=== PATIENT | female | born 1980 | race Caucasian/White ===

== ENCOUNTER 2019-03-06 16:08 | Emergency (ER) | payer OTHER ==
[~2019-03-06] VITALS: Wt 117.9 kg
--- NOTE | ~2019-03-06 | EKG ---
[place], [place] ELECTROCARDIOGRAM REPORT NAME: NITESH NOVAK UNIT #: [id number] ROOM: DOCTOR: EPIPHANY DRAFT REPORT BIRTHDATE: [birth year] [facility] Test Date: 2019-03-06 Test Time: 16:44:54 Pat Name: NITESH NOVAK Department: ER Room: Gender: F Tile Finisher: aDvis Baires : 1980 Requested By: CHIOMA BENITES Order Number: [id number] Reading MD: Patricia Jose Measurements Intervals [place] Rate: 98 P: 35 [place]: 154 QRS: -45 QRSD: 91 T: 17 QT: 346 QTc: 442 Interpretive Statements Sinus rhythm Inferior infarct, old Anterolateral Q wave, probably normal for age Electronically Signed On 03-08-2019 12:49:10 PDT by Patricia Joes CM:EKGRPT:ELECTROCARDIOGRAM REPORT [id number] CHIOMA MONTOYA DRAFT REPORT CHIOMA BENITES MD
[~2019-03-06 16:08] MED LIST: ATENOLOL25 MG PO; BENTYL10 MG PO; CIPROFLOXACIN500 MG PO; FE-TABS325 MG PO; LEVOTHYROXINE0.05 M1 PO; MOTRIN800 MG PO; NKHM; PERCOCET 325 MG1 TA2 PO; POLYTRIM 1000010 ML OPH; PRENATAL1 TA1 PO; PROTONIX20 MG PO; RA VITAMIN D3; TRAMADOL HCL50 MG PO; ULTRAM50 MG PO; ZITHROMAX TRI-500 MG PO; ZOFRAN4 MG PO; Zofran4 MG PO
[2019-03-06 16:43] LABS: BASO % 0.5 % (0.0-1.0); EOS # 0.1 10*3/uL (0.0-0.4); EOS % 1.4 % (1.0-4.0); HEMATOCRIT 38.2 % (37.0-47.0); HEMOGLOBIN 12.6 g/dl (12.0-16.0); LYMPH # 0.9 10*3/uL (1.3-4.4); LYMPH % 21.9 % (27.0-41.0); MEAN CELL VOLUME 87.4 fl (81.0-99.0); MEAN CORPUSCULAR HGB 28.8 pg (27.0-31.0); MEAN PLATELET VOLUME 10.7 fl (9.6-12.3); MONO # 0.2 10*3/uL (0.1-1.0); MONO % 5.2 % (3.0-9.0); NEUT % 70.5 % (47.0-73.0); PLATELET COUNT AUTOMATED 139 10*3/uL (130-400); RED BLOOD COUNT 4.37 10*6/uL (4.10-5.10); RED CELL DISTRI WIDTH 13.2 % (0-14.5); WHITE BLOOD COUNT 4.2 10*3/uL (4.8-10.8)
[2019-03-06 16:58] LABS: ACT PARTIAL THROMBO TIME 27.7 SECONDS (20.0-32.1)
[2019-03-06 17:02] LABS: ALBUMIN 3.7 gm/dl (3.1-4.5); ALKALINE PHOSPHATASE 65 U/L (45-117); BUN 8 mg/dl (7-24); CHLORIDE 108 mmol/L (98-107); CREATININE 0.83 mg/dL (0.55-1.02); SGOT/AST 20 IU/L (3-35); SGPT/ALT 13 U/L (12-78); SODIUM 138 mmol/L (136-145); TOTAL PROTEIN 7.8 gm/dL (6.4-8.2)
[2019-03-06 17:05] LABS: TROPONIN I < 0.015 ng/ml (<0.045)
[2019-03-06 17:22] LABS: BILIRUBIN NEGATIVE (NEGATIVE); BLOOD TRACE-INTACT (NEGATIVE); CLARITY CLEAR (CLEAR); COLOR YELLOW (YELLOW); GLUCOSE NEGATIVE (NEGATIVE); KETONE NEGATIVE (NEGATIVE); LEUKO ESTERASE TRACE (NEGATIVE); NITRITE NEGATIVE (NEGATIVE); PH 5.5 (5.0-9.0); SPECIFIC GRAVITY 1.025 (1.005-1.030); UROBILINOGEN 0.2 E.U./dl (0.2-1.0)
[2019-03-06 17:28] LABS: BACTERIA 2+; EPITHELIAL CELLS 16-20; RBC 0-2 rbc/hpf (0-2)
[2019-03-06] MEDS ORDERED: GOOD NEIGHBOR M25 M1 PO (18:04)
== END 2019-03-06 19:44 | disposition home or self-care (01) ==
LOC: ED 16:08
PROVIDERS: Emergency Medicine
DX: H81.10 Benign paroxysmal vertigo, unspecified ear (principal); K21.9 Gastro-esophageal reflux disease without esophagitis; Z79.899 Other long term (current) drug therapy

== ENCOUNTER → 2020-08-11 | Outpatient (CLI) | payer OTHER ==
[~2020-08-11] MED LIST changes: +AMOXICILLIN500 M3 PO; +GOOD NEIGHBOR M25 M1 PO
== END | disposition home or self-care (01) ==
LOC: US 15:21
PROVIDERS: ATTEND Nurse Practitioner Women's Health
DX: N93.9 Abnormal uterine and vaginal bleeding, unspecified (principal)

== ENCOUNTER 2020-08-18 18:09 | Emergency (ER) | payer OTHER ==
[~2020-08-18] VITALS: Wt 117.9 kg
[~2020-08-18 18:09] MED LIST changes: -AMOXICILLIN500 M3 PO
[2020-08-18] MEDS ORDERED: AMOXICILLIN500 M3 PO (19:02)
== END 2020-08-18 19:46 | disposition home or self-care (01) ==
LOC: ED 18:09
DX: U07.1 COVID-19 (principal); J35.8 Other chronic diseases of tonsils and adenoids

== ENCOUNTER → 2020-12-22 | Outpatient (CLI) | payer OTHER ==
[~2020-12-22] MED LIST changes: +AMOXICILLIN500 M3 PO
[2020-12-22 15:37] LABS: BILIRUBIN Negative (Negative); BLOOD Negative (Negative); CLARITY Clear (Clear); COLOR Yellow (Yellow); GLUCOSE Negative (Negative); KETONE Negative (Negative); LEUKO ESTERASE Trace (Negative); NITRITE Negative (Negative); PH 5.5 (4.5-8.0); UROBILINOGEN 0.2 E.U./dl (0.0-1.0)
[2020-12-22 15:47] LABS: BACTERIA TRACE; RBC 0-2 rbc/hpf (0-2)
== END | disposition home or self-care (01) ==
LOC: LAB 15:12
PROVIDERS: ATTEND Internal Medicine
DX: R39.9 Unspecified symptoms and signs involving the genitourinary system (principal)

== ENCOUNTER → 2021-08-30 | Outpatient (CLI) | payer OTHER | END | disposition home or self-care (01) | LOC: COVID19 16:12 | PROVIDERS: ATTEND Student in an Organized Health Care Education/Training Program | DX: Z11.52 Encounter for screening for COVID-19 (principal) ==

== ENCOUNTER → 2022-11-20 | Outpatient (CLI) | payer OTHER | END | disposition home or self-care (01) | LOC: MAMMO 16:28 | PROVIDERS: ATTEND Internal Medicine Nephrology | DX: Z12.31 Encounter for screening mammogram for malignant neoplasm of breast (principal); N64.89 Other specified disorders of breast ==

== ENCOUNTER → 2023-01-10 | Outpatient (CLI) | payer OTHER | END | disposition home or self-care (01) | LOC: CARD 00:17 | PROVIDERS: ATTEND Internal Medicine Nephrology | DX: I07.1 Rheumatic tricuspid insufficiency (principal) ==

== ENCOUNTER 2024-08-07 23:15 | Emergency (ER) | payer OTHER ==
[~2024-08-07] VITALS: Ht 162.5 cm; Wt 119.9 kg
[2024-08-08 00:51] LABS: BILIRUBIN Negative (Negative); BLOOD Negative (Negative); CLARITY Clear (Clear); COLOR Yellow (Yellow); GLUCOSE Negative (Negative); KETONE Negative (Negative); LEUKO ESTERASE Negative (Negative); NITRITE Negative (Negative); PH 5.5 (4.5-8.0); SPECIFIC GRAVITY 1.015 (1.001-1.030); UROBILINOGEN 0.2 E.U./dl (0.0-1.0)
[2024-08-08 00:58] LABS: WBC 0-2 wbc/hpf (0-5)
[2024-08-08] MEDS ORDERED: PREDNISONE20 M1 PO (01:51)
[2024-08-08] MEDS ORDERED: CYCLOBENZAPRINE10 MG PO (01:51)
[2024-08-08] MEDS ORDERED: Cyclobenzaprine Hydrochlorid 10 MG TAB PO ONE (01:55)
[2024-08-08] MEDS ORDERED: predniSONE 20 MG TAB PO ONE (01:55)
== END 2024-08-08 01:55 | disposition home or self-care (01) ==
LOC: ED 23:15
PROVIDERS: Emergency Medicine
DX: M54.42 Lumbago with sciatica, left side (principal)

== ENCOUNTER 2024-10-28 15:53 | Emergency (ER) | payer SELFPAY ==
[~2024-10-28] VITALS: Wt 113.4 kg
[~2024-10-28 15:53] MED LIST changes: +CYCLOBENZAPRINE10 MG PO; +PREDNISONE20 M1 PO
[2024-10-28] MEDS ORDERED: NAPROSYN500 MG PO (18:04)
[2024-10-28] MEDS ORDERED: PENICILLIN VK500 MG PO (18:04)
[2024-10-28] MEDS ORDERED: Acetaminophen/Hydrocodone 5 MG/325 MG TABLET PO ONE (18:05)
== END 2024-10-28 18:11 | disposition home or self-care (01) ==
LOC: ED 15:53
DX: K08.89 Other specified disorders of teeth and supporting structures (principal)